=== PATIENT | female | born 1945 | race Caucasian/White ===

== ENCOUNTER 2019-04-27 07:40 | Day surgery (SDC) | payer BC ==
[~2019-04-27] VITALS: Ht 160 cm; Wt 81.9 kg
[~2019-04-27 07:40] MED LIST: ALBU90I INH; Bystolic20 MG PO; CARV25 PO; CEPH500 PO; CYCL0.05OP; DIGO.125 PO; DOCU100 PO; EUTHYROX88 MCG PO; FLUO10 PO; LEVSOD100 PO; LEVSOD75 PO; LORA.5 PO; LOSA25 PO; MAGOXI400 PO; MAXALT PO; Monodox100 MG PO; PRED20 PO; RIZATRIPTAN10 M1 PO; RIZATRIPTAN10 MG PO; SPIR25 PO; TORS10 PO; Xyzal5 MG PO; ZOLP10 PO; ZOLP5 PO
== END 2019-04-27 09:51 | disposition home or self-care (01) ==
LOC: ORSCSDS 07:40
PROVIDERS: Internal Medicine Gastroenterology
PROC: 0DJD8ZZ Inspection of Lower Intestinal Tract, Via Natural or Artificial Opening Endoscopic (ICD-10-PCS; principal; 2019-04-27 09:00)
DX: Z12.11 Encounter for screening for malignant neoplasm of colon (principal); K57.30 Diverticulosis of large intestine without perforation or abscess without bleeding; Z86.010 Personal history of colon polyps; I10 Essential (primary) hypertension; E03.9 Hypothyroidism, unspecified; Z79.899 Other long term (current) drug therapy
CPT/HCPCS: J0330; J0461; J2405; J2704; J7120

== ENCOUNTER → 2022-01-16 | Outpatient (CLI) | payer BC | LOC: LAB 07:39 → LAB SHORT 07:39 | DX: D03.61 Melanoma in situ of right upper limb, including shoulder (principal) | CPT/HCPCS: 88305 ==

== ENCOUNTER → 2022-02-01 | Outpatient (CLI) | payer BC | END | disposition home or self-care (01) | LOC: LAB SHORT 07:44 → PLD 07:44 | DX: D03.61 Melanoma in situ of right upper limb, including shoulder (principal) | CPT/HCPCS: 88305 ==

== ENCOUNTER → 2022-03-19 | Outpatient (CLI) | payer BC | END | disposition home or self-care (01) | LOC: LAB SHORT 14:39 → PLD 14:39 | DX: C43.61 Malignant melanoma of right upper limb, including shoulder (principal) | CPT/HCPCS: 88305 ==